=== PATIENT | male | born 1950 | race Caucasian/White ===

== ENCOUNTER 2022-08-06 09:58 | Emergency (ER) | payer MEDICARE, OTHER ==
[2022-08-06 10:02] VITALS: RESP 20; TEMP 98.5
[2022-08-06] MEDS ORDERED: KETOROLAC 15 MG/ML 1 ML VIAL IVP STA (10:21)
--- NOTE | 2022-08-06 10:23 | ED ---
General Adult HPI - General Chief complaint: Chest Pain Stated complaint: chest pain, sob Source: patient, RN notes reviewed, old records reviewed Mode of arrival: ambulatory Limitations: no limitations - History of Present Illness Initial comments: This is a 72-year-old male who presents emergency Department complaining of a 10 day history of pleuritic central and right-sided chest pain. Patient states he has a history of lung cancer. Patient states he had a lobectomy back in 2016. Patient states she's had radiation since then. Patient states the cancer was always on the right side. Patient states this chest pain radiates down his right arm. Patient states he also is very hypoxic when he just get gets up and moves around a little particular going upstairs his oxygenation go down into the 80s. Patient denies any diaphoretic episodes. Patient denies any syncopal or near syncopal episodes. Patient denies any abdominal pain patient denies nausea vomiting diarrhea. Patient denies any recent fever chills or cough. No swelling to the legs or calf tenderness. - Related Data Home Medications Medication Instructions Recorded Confirmed Calcium Carbonate [Calcium] 1,200 mg PO BID 08/06/22 08/06/22 Cholecalciferol [Vitamin D3 (25 50 mcg PO DAILY 08/06/22 08/06/22 Mcg = 1000 Iu)] Cyanocobalamin (Vitamin B-12) 1,000 mcg PO DAILY 08/06/22 08/06/22 [Vitamin B-12] Doxycycline [Vibramycin] 100 mg PO BID 08/06/22 08/06/22 Folic Acid 0.8 mg PO DAILY 08/06/22 08/06/22 Magnesium Oxide [Arenas] 500 mg PO DAILY 08/06/22 08/06/22 Multivit-Min/FA/Lycopen/Lutein 1 tab PO DAILY 08/06/22 08/06/22 [Centrum Silver Men Tablet] Naproxen [Naprosyn] 375 mg PO BID 08/06/22 08/06/22 Sertraline [Zoloft] 100 mg PO DAILY 08/06/22 08/06/22 Simvastatin [Zocor] 20 mg PO HS 08/06/22 08/06/22 Ubidecarenone [Coenzyme Q10] 200 mg PO DAILY 08/06/22 08/06/22 amLODIPine [Norvasc] 10 mg PO HS 08/06/22 08/06/22 Previous Rx's Medication Instructions Recorded Ketorolac [Toradol] 10 mg PO Q6HR #15 tab 08/06/22 Allergies Allergy/AdvReac Type Severity Reaction Status Date / Time cephalexin [From Keflex] Allergy Rash/Hives Verified 08/06/22 11:44 Review of Systems ROS Statement: Those systems with pertinent positive or pertinent negative responses have been documented in the HPI. ROS Other: All systems not noted in ROS Statement are negative. Past Medical History Past Medical History: Hypertension, Rheumatoid Arthritis (RA) Additional Past Medical History / Comment(s): Lung CA. History of Any Multi-Drug Resistant Organisms: None Reported Past Surgical History: Orthopedic Surgery Additional Past Surgical History / Comment(s): Lung, Back Past Psychological History: No Psychological Hx Reported Smoking Status: Never smoker Past Alcohol Use History: None Reported Past Drug Use History: None Reported General Exam - General Exam Comments Initial Comments: GENERAL: Patient is well-developed and well-nourished. Patient is nontoxic and well- hydrated and is in mild distress. ENT: Neck is soft and supple. No significant lymphadenopathy is noted. Oropharynx is clear. Moist mucous membranes. Neck has full range of motion without eliciting any pain. EYES: The sclera were anicteric and conjunctiva were pink and moist. Extraocular movements were intact and pupils were equal round and reactive to light. Eyelids were unremarkable. PULMONARY: Unlabored respirations. Good breath sounds bilaterally. No audible rales rhonchi or wheezing was noted. CARDIOVASCULAR: There is a regular rate and rhythm without any murmurs gallops or rubs. Patient does have some tenderness when I palpate the right upper chest. Patient also has quite a bit of pain taking a deep breath or trying to sit up in bed. ABDOMEN: Soft and nontender with normal bowel sounds. SKIN: Skin is clear with no lesions or rashes and otherwise unremarkable. NEUROLOGIC: Patient is alert and oriented x3. Cranial nerves II through XII are grossly intact. Motor and sensory are also intact. Normal speech, volume and content. Symmetrical smile. MUSCULOSKELETAL: Normal extremities with adequate strength and full range of motion. LYMPHATICS: No significant lymphadenopathy is noted PSYCHIATRIC: Normal psychiatric evaluation. Limitations: no limitations Course Vital Signs 08/06/22 08/06/22 10:00 10:06 Temperature 98.5 F Pulse Rate 87 Pulse Rate [ 90 Vp Ancillary ] Respiratory 20 Rate Blood Pressure 149/78 O2 Sat by Pulse 98 Oximetry Medical Decision Making - Medical Decision Making EKG shows a sinus rhythm at 67 bpm ME interval is 180 QRS is 70 QT interval 362 QTC is 378. Patient's EKG shows no ST segment elevation or depression. CT showed no obvious pulmonary embolism. There was an area in the right upper lobe that could either be scar tissue versus a new mass. Patient has no previous scans or x-rays here to compare with. Patient will be given a dentist to go home to follow-up with his oncologist. Patient also added in this visit that this all started when he was went to arising his trailer and he was reaching up to do something he started having pain in the right upper chest and into his arm. Patient states it's hurt ever signs. - Lab Data Result diagrams: 08/06/22 10:26 08/06/22 10: Lab Results 08/06/22 08/06/22 08/06/22 Range/Units 10: 10: 10: WBC 7.2 (3.8-10.6) k/uL RBC 4.36 (4.30-5.90) m/uL Hgb 13.9 (13.0-17.5) gm/dL Hct 41.2 (39.0-53.0) % MCV 94.5 (80.0-100.0) fL MCH 31.9 (25.0-35.0) pg MCHC 33.8 (31.0-37.0) g/dL RDW 12.3 (11.5-15.5) % Plt Count 224 (150-450) k/uL MPV 7.8 Neutrophils % 77 % Lymphocytes % 14 % Monocytes % 5 % Eosinophils % 2 % Basophils % 0 % Neutrophils # 5.5 (1.3-7.7) k/uL Lymphocytes # 1.0 (1.0-4.8) k/uL Monocytes # 0.4 (0-1.0) k/uL Eosinophils # 0.1 (0-0.7) k/uL Basophils # 0.0 (0-0.2) k/uL PT 9.9 (9.0-12.0) sec INR 0.9 (<1.2) APTT 27.3 (22.0-30.0) sec D-Dimer 0.72 H (<0.60) mg/L FEU Sodium 140 (137-145) mmol/L Potassium 4.2 (3.5-5.1) mmol/L Chloride 101 (98-107) mmol/L Carbon Dioxide 27 (22-30) mmol/L Anion Gap 12 mmol/L BUN 16 (9-20) mg/dL Creatinine 0.97 (0.66-1.25) mg/dL Est GFR (CKD-EPI)AfAm 90 (>60 ml/min/1.73 sqM) Est GFR (CKD-EPI)NonAf 78 (>60 ml/min/1.73 sqM) Glucose 88 (74-99) mg/dL Calcium 9.3 (8.4-10.2) mg/dL Magnesium 2.1 (1.6-2.3) mg/dL Total Bilirubin 0.6 (0.2-1.3) mg/dL AST 21 (17-59) U/L ALT 21 (4-49) U/L Alkaline Phosphatase 92 (38-126) U/L Troponin I (0.000-0.034) ng/mL Total Protein 7.4 (6.3-8.2) g/dL Albumin 4.6 (3.5-5.0) g/dL 08/06/22 Range/Units 10:26 WBC (3.8-10.6) k/uL RBC (4.30-5.90) m/uL Hgb (13.0-17.5) gm/dL Hct (39.0-53.0) % MCV (80.0-100.0) fL MCH (25.0-35.0) pg MCHC (31.0-37.0) g/dL RDW (11.5-15.5) % Plt Count (150-450) k/uL MPV Neutrophils % % Lymphocytes % % Monocytes % % Eosinophils % % Basophils % % Neutrophils # (1.3-7.7) k/uL Lymphocytes # (1.0-4.8) k/uL Monocytes # (0-1.0) k/uL Eosinophils # (0-0.7) k/uL Basophils # (0-0.2) k/uL PT (9.0-12.0) sec INR (<1.2) APTT (22.0-30.0) sec D-Dimer (<0.60) mg/L FEU Sodium (137-145) mmol/L Potassium (3.5-5.1) mmol/L Chloride (98-107) mmol/L Carbon Dioxide (22-30) mmol/L Anion Gap mmol/L BUN (9-20) mg/dL Creatinine (0.66-1.25) mg/dL Est GFR (CKD-EPI)AfAm (>60 ml/min/1.73 sqM) Est GFR (CKD-EPI)NonAf (>60 ml/min/1.73 sqM) Glucose (74-99) mg/dL Calcium (8.4-10.2) mg/dL Magnesium (1.6-2.3) mg/dL Total Bilirubin (0.2-1.3) mg/dL AST (17-59) U/L ALT (4-49) U/L Alkaline Phosphatase (38-126) U/L Troponin I <0.012 (0.000-0.034) ng/mL Total Protein (6.3-8.2) g/dL Albumin (3.5-5.0) g/dL Disposition Clinical Impression: Musculoskeletal chest pain Disposition: HOME SELF-CARE Condition: Good Instructions (If sedation given, give patient instructions): Chest Pain (ED) Prescriptions: Ketorolac [Toradol] 10 mg PO Q6HR #15 tab Is patient prescribed a controlled substance at d/c from ED?: No Referrals: Nonstaff,Physician [Primary Care Provider] - 1-2 days Time of Disposition: 12:13
[2022-08-06 10:36] LABS: Basophils % (A) 0 %; Eosinophils # (A) 0.1 k/uL (0-0.7); Eosinophils % (A) 2 %; HCT 41.2 % (39.0-53.0); HGB 13.9 gm/dL (13.0-17.5); Lymphocytes % (A) 14 %; MCH 31.9 pg (25.0-35.0); MCHC 33.8 g/dL (31.0-37.0); MCV 94.5 fL (80.0-100.0); Mean Platelet Volume 7.8; Monocytes # (A) 0.4 k/uL (0-1.0); Monocytes % (A) 5 %; Neutrophils # (A) 5.5 k/uL (1.3-7.7); Neutrophils % (A) 77 %; Platelet Count 224 k/uL (150-450); RBC 4.36 m/uL (4.30-5.90); RDW 12.3 % (11.5-15.5); WBC 7.2 k/uL (3.8-10.6)
[2022-08-06 10:53] LABS: Albumin 4.6 g/dL (3.5-5.0); Calcium 9.3 mg/dL (8.4-10.2); Magnesium 2.1 mg/dL (1.6-2.3); Potassium 4.2 mmol/L (3.5-5.1); Total Bilirubin 0.6 mg/dL (0.2-1.3); Total Protein 7.4 g/dL (6.3-8.2)
[2022-08-06 10:56] LABS: INR 0.9 (<1.2); Partial Thromboplastin Time 27.3 sec (22.0-30.0); Prothrombin Time 9.9 sec (9.0-12.0)
--- NOTE | 2022-08-06 11:41 | CT ---
EXAMINATION TYPE: CT chest angio for PE DATE OF EXAM: 08/06/2022 COMPARISON: None HISTORY: Pleuritic chest pain, shortness of breath, hypoxia CONTRAST: CT chest with contrast and 3D reconstruction with MIP imaging is performed with IV Contrast, patient injected with 100 mL of Isovue 370. Contrast-enhanced CT of the chest was performed through the course of the pulmonary arteries with gaston g and mediastinal window settings submitted. 3D reconstruction with MIP imaging was also performed. PULMONARY ARTERIES: There are a few smaller filling defects within left upper lobe pulmonary arterial second order branches (axial images 38 and 35). Small pulmonary embolism is difficult to exclude. Th ere is no evidence for large saddle embolism. LUNGS: Right upper lobe pleural-based mass seen best on image 45 and axial data set and 70 coronal da ta set measuring 3 x 2.4 cm. Neoplasm is not excluded. Recommend PET/CT for further evaluation. No ad ditional nodules or masses seen. Left apical parenchymal scarring. Peripheral emphysematous changes n oted bilaterally. MEDIASTINUM: Thoracic aorta is of normal caliber,however, evaluation is limited given timing of the contrast bolus. If there is concern for thoracic aortic pathology consider [place]. Correlate clinicall y . The heart is not enlarged. No evidence for mediastinal mass. No mediastinal lymph nodes greater than 1cm. HILAR STRUCTURES: No evidence for mass. No hilar lymph nodes greater than 1 cm. UPPER ABDOMEN: No significant abnormality is seen. IMPRESSION: 1. I cannot exclude small left upper lobe pulmonary embolism. 2. Pleural-based mass right upper lobe. Neoplasm is not excluded.
[2022-08-06] MEDS ORDERED: HYDROmorphone 0.5 MG/0.5 ML SYRINGE IVP STA (12:20)
[2022-08-06] MEDS ORDERED: ACET/COD 300 MG/30 MG STARTER PACK 6 TAB BTL PO STA (12:20)
[2022-08-06 12:52] VITALS: BP 137/76; PULSE 73
== END 2022-08-06 12:52 | disposition home or self-care (01) ==
LOC: EC 09:58
DX: R07.89 Other chest pain (principal); I10 Essential (primary) hypertension; M06.9 Rheumatoid arthritis, unspecified; Z79.899 Other long term (current) drug therapy; Z88.1 Allergy status to other antibiotic agents
CPT/HCPCS: 36415; 93005; 85379; 80053; 83735; 84484; 85025; 85610; 85730; 71275; 99285; 96374; 96375; J1885; J1170; Q9967

== ENCOUNTER → 2023-02-27 | Outpatient (CLI) | payer MEDICARE, OTHER ==
[2023-02-27 08:20] VITALS: BP 115/70; PULSE 71; RESP 18; TEMP 97.9
--- NOTE | 2023-02-27 08:57 | XR ---
EXAMINATION TYPE: XR lumbar spine 2 or 3V DATE OF EXAM: 02/27/2023 8:46 AM INDICATION: Patient age:Male; 72 years old; Reason for study: M51.36 Degeneration of lumbar disc; PHH. COMPARISON: None TECHNIQUE: Frontal and lateral views of the spine. FINDINGS: Fixation hardware extending extending from what is thought to be L3-L5. Hardware appears in tact. Discectomy changes at L3-L4 and L4-L5. Suspected transitional vertebrae at S1. There is scatter ed disc space narrowing most pronounced at L1-L2 with disc space narrowing. No evidence of fracture. There is facet joint arthropathy. The spinous processes are in pseudoarticulation. Atherosclerosis of the arterial vasculature. IMPRESSION: 1. Postsurgical changes with hardware intact, No acute fracture. 2. Moderate multilevel disc degeneration. 3. Evidence for Baastrup's disease.
--- NOTE | 2023-02-27 15:00 | P.PAINPG ---
PQRS Measure Charge Sheet Comment: HISTORY OF PRESENT ILLNESS: 72 yr old male as a referral from [facility] presents today w severe and chronic LBP secondary to spondylolisthesis, DDD and facet arthropathy without myelopathy for evaluation. Pt states pain level is provoked at 6/10 in intensity, constant, localized in the lower lumbar spine, tight, cramping in character w shooting pain towards the BLEs. Pain is provoked by sitting for periods of 30 min or more. Pain is alleviated by PT integrated w massage therapy 5 yrs ago which was ineffective, heat, medications (Flexeril, Neurontin), standing, repositioning and rest. PMH: HTN, Hyperlipidemia, COPD, PVD, RA PSH: Lumbar Hardware ([address] Mello), L Total Shoulder, R Shoulder Arthroscopy, Lung CA SH: Hx of tobacco use, quit 30 yrs ago. No ETOH abuse, No illicit drug use. FH: Non contributory All: See list Meds: See list REVIEW OF ORGAN SYSTEMS: CONSTITUTIONAL: No fevers or chills. No recent weight loss. NEUROLOGICAL: + numbness and tingling along the distal extremities. No seizure disorders or headaches. MUSCULOSKELETAL: + pain PSYCHIATRIC: Denies current depression or suicidal thoughts. Physical Examinations : Constitutional : Cooperative , not in acute distress . Neurologic : Cranial nerve II to XII intact. No focal neurological deficits. Psychiatric : alert & oriented x 3. Matching mood & appropriate affect. Judgment & insight intact. Musculoskeletal : Cervical Spine Motor strength in the deltoid and biceps: Normal right side. Normal Left side Motor strength biceps and the wrist extensors: Normal right side . Normal left side Motor strength in the triceps muscle: Normal right side. Normal left side Deep tendon reflexes: Normal at the biceps. Normal at Brachioradialis. Normal at triceps Vertebral body tenderness to deep palpation over Cervical facet loading test: positive bilaterally Spurling test: positive bilaterally Neck distraction test: positive bilaterally Denton sign: positive bilaterally Lumbar spine +Well healed vertical incisional scar over L2-L5 Motor strength lower extremities ,thigh and legs 5/5 Right side , 5/5 Left side Deep tendon reflexes : Normal Knee Jerk. Normal Ankle Jerk Vertebral body tenderness over L3, L4, L5 Lumbar facet Loading Test: positive Right / positive Left Range of motion of the lumbar spine Flexion 30 degrees, extension 10 degrees Straight Leg Raise test: Left/ Right positive at degree Evy test: positive right / positive left. Severe tenderness over the Sacroiliac joint on the Right / Left sides Gaenslen test: positive bilaterally Seated flexion test: positive bilaterally. Sacral spine : Severe tenderness over the Sacroiliac joint: right side / left side Range of motion: Flexion of the lumbar spine <60 degrees Range of motion: Extension of the lumbar spine <20 degrees Gaenslen's Test positive Puma's Test positive Evy test: positive right side / left side Thigh Thrust Test Sacral Thrust Test Imaging: None on file Assessment/ Plan : Lumbar spondylolisthesis Recommendation of x rays of lumbar spine re: M51.36 May need additional testing if indicated. All questions answered. I have spent greater than 30 minutes on patient care today. Dr Cruz was available by phone for the evaluation of this patient. The time was used to review the medical records including relevant urine studies and Prescription history (MAPs), review of the available imaging, evaluation and examination of the patient, coordination of care with the medical staff and if applicable referring physicians, as well as creation of the medical record - Pain Location Bilateral Lower Back Non-Pharmacological Interventions: Heat, Massage, Physical Therapy, Sitting, Standing Pharmacological Interventions: PRN Medication, Scheduled Medication Home Medications: Ambulatory Orders Calcium Carbonate [Calcium] 1,200 mg PO BID 08/06/22 Cholecalciferol [Vitamin D3 (25 Mcg = 1000 Iu)] 50 mcg PO DAILY 08/06/22 Cyanocobalamin (Vitamin B-12) [Vitamin B-12] 1,000 mcg PO DAILY 08/06/22 Doxycycline [Vibramycin] 100 mg PO BID 08/06/22 Folic Acid 0.8 mg PO DAILY 08/06/22 Ketorolac [Toradol] 10 mg PO Q6HR #15 tab 08/06/22 Magnesium Oxide [Arenas] 500 mg PO DAILY 08/06/22 Multivit-Min/FA/Lycopen/Lutein [Centrum Silver Men Tablet] 1 tab PO DAILY 08/06/22 Naproxen [Naprosyn] 375 mg PO BID 08/06/22 Sertraline [Zoloft] 100 mg PO DAILY 08/06/22 Simvastatin [Zocor] 20 mg PO HS 08/06/22 Ubidecarenone [Coenzyme Q10] 200 mg PO DAILY 08/06/22 amLODIPine [Norvasc] 10 mg PO HS 08/06/22 Controlled Substance Measures - Controlled Substance Measures Is patient prescribed a controlled substance at discharge?: No
== END ==
LOC: PNWHC3 07:50
PROVIDERS: ATTEND Specialist
DX: M51.36 Other intervertebral disc degeneration, lumbar region (principal); M43.16 Spondylolisthesis, lumbar region; I10 Essential (primary) hypertension; E78.5 Hyperlipidemia, unspecified; J44.9 Chronic obstructive pulmonary disease, unspecified; I73.9 Peripheral vascular disease, unspecified; M06.9 Rheumatoid arthritis, unspecified; Z88.1 Allergy status to other antibiotic agents
CPT/HCPCS: 72100; G0463; 99211

== ENCOUNTER → 2023-03-18 | Outpatient (CLI) | payer MEDICARE, OTHER ==
--- NOTE | 2023-03-19 11:34 | MR ---
EXAMINATION TYPE: MR lumbar spine wo con DATE OF EXAM: 03/18/2023 COMPARISON: Outside MRI performed 07/24/2019 HISTORY: Low back pain, hx of surgery TECHNIQUE: T1 and T2 axial and sagittal images of the lumbar spine are submitted. FINDINGS: There is no abnormal signal seen within the visualized spinal cord or paraspinal soft tissu es. There is extensive artifact compatible with prior laminectomy with disc spacers in transpedicular screws at levels L3-L5 limiting their assessment. At T12-L1 there is a vacuum disc phenomenon compatible severe degenerative disc disease. There is hyp ertrophic change of the facets. There is posterior disc bulging. Neural foramina are mildly narrowed bilaterally. No canal stenosis. At L1-2 there is severe degenerative disc disease with posterior spondylosis. Broad-based disc osteop hyte complex with disc bulging and facet arthropathy. Lateral recess stenosis bilaterally with modera te to severe bilateral foraminal encroachment and moderate canal stenosis. There is a chronic superio r endplate compression fracture measuring approximately 10% loss of vertebral body height. At L2-3 there is moderate degenerative disc disease with broad-based disc bulging and disc osteophyte complex results in moderate to severe central stenosis. There is moderate right and mild left nate inal encroachment At L3-4 there is postsurgical change with no obvious canal stenosis or disc herniation. Moderate bila teral foraminal encroachment. At L4-5 there is postsurgical changes with a minimal anterolisthesis of L4 on L5. No obvious canal st enosis. No obvious disc herniation. Mild to moderate bilateral foraminal encroachment. At L5-S1 there is facet arthropathy but no disc herniation or canal stenosis. Neural foramina remain patent. IMPRESSION: 1. Surgical changes L3-L5 with no evidence of canal stenosis or disc herniation at these levels. 2. Severe degenerative disc disease L-1-2 with posterior disc bulging and disc osteophyte complex res ulting in lateral recess stenosis bilaterally, moderate to severe bilateral foraminal encroachment, a nd moderate canal stenosis. 3. Posterior disc osteophyte complex results in moderate to severe central stenosis L2-3 with bilater al foraminal encroachment greater on the right.
== END | disposition home or self-care (01) ==
LOC: RADMRIMAIN 09:07
PROVIDERS: ATTEND Specialist
DX: M51.36 Other intervertebral disc degeneration, lumbar region (principal); M25.78 Osteophyte, vertebrae; M48.061 Spinal stenosis, lumbar region without neurogenic claudication
CPT/HCPCS: 72148

== ENCOUNTER → 2023-03-20 | Outpatient (CLI) | payer MEDICARE, OTHER ==
[2023-03-20 08:29] VITALS: BP 150/78; PULSE 73; RESP 18
--- NOTE | 2023-03-20 14:39 | P.PAINPG ---
PQRS Measure Charge Sheet Comment: A 72 yr old male with a history of severe and chronic LBP x 5 yrs secondary to post laminectomy syndrome presents today for imaging results. Pain level is provoked at 6 /10 in intensity, constant, localized in the lumbar spine, sore in character w shooting towards the LLE. Pain is provoked by walking/ sitting/ laying for periods of 15m or more. Pain is alleviated with PT integrated w massage therapy 5 yrs ago which was ineffective, heat, medications, hot shower, reclining, sitting and rest. Patient is currently on Neurontin, Flexeril Patient denies any side effects of the medication(s), denies excessive drowsiness or sleepiness, denies suicidal ideation and reports that the current pain medication is helping to control the pain and improve activities of daily living. Patient denies any motor or sensory deficits. Patient denies any fever or night sweats, denies any change in the bowel movements or urination. Physical Examination: -Constitutional: Cooperative. Not in acute distress . - Neurologic: Cranial nerve II to XII intact. No focal neurological deficits. - Psychatric: Alert & oriented x 3. Matching mood & appropriate affect. Judgment and insight intact. - Musculoskeletal: Cervical spine: Muscle bulk/ tone/ strength in the bilateral upper extremities normal Vertebral body tenderness to palpation over Spurling test positive Distraction test positive Facet loading test positive TTP Thoracic spine Muscle bulk / tone/ strength in the bilateral paraspinal muscles normal Vertebral body tender to palpation over Facet loading test positive TTP Lumbar spine: Motor bulk/ tone/ strength lower extremities , thigh and legs : 5/5 Deep tendon reflexes : Normal Knee Jerk. Normal Ankle Jerk . Vertebral body tenderness to palpation over L4 Torrez Test positive Lumbar Facet Loading Test positive Straight Leg Raise: positive at 30 degrees right side/ left side Gaenslen's Test positive Sacral spine : Severe tenderness over the Sacroiliac joint: right side / left side Range of motion: Flexion of the lumbar spine <60 degrees Range of motion: Extension of the lumbar spine <20 degrees Gaenslen's Test positive right side / left side Evy test: positive right side / left side Thigh Thrust Test positive right side / left side Sacral Thrust Test positive right side / left side Imaging: MRI noncontrast of the lumbar spine from 03/19/23 reviewed Assessment and plan: Chronic LBP secondary to post laminectomy syndrome Recommendation of L TFESI L4-L5 #1. May need a series of injections for optimal pain relief. Risks, benefits of procedure discussed and pt verbalized understanding. Admits to anticoagulant use or medical history of diabetes. Protocol for discontinuation/ continuation of medications esequiel procedure discussed. Minimal anesthesia provided, if clinically indicated, consisting of Versed and Fentanyl. All questions answered. I have spent less than 30 minutes on patient care today. Dr Cruz was available by phone for the evaluation of this patient. The time was used to review the medical records including relevant urine studies and Prescription history (MAPs), review of the available imaging, evaluation and examination of the patient, coordination of care with the medical staff and if applicable referring physicians, as well as creation of the medical record PQRS Narrative: Hx Alcohol Use (MH) Yes: SELDOM Home Medications: Ambulatory Orders Calcium Carbonate [Calcium] 1,200 mg PO BID 08/06/22 Cholecalciferol [Vitamin D3 (25 Mcg = 1000 Iu)] 50 mcg PO DAILY 08/06/22 Cyanocobalamin (Vitamin B-12) [Vitamin B-12] 1,000 mcg PO DAILY 08/06/22 Doxycycline [Vibramycin] 100 mg PO BID 08/06/22 Folic Acid 0.8 mg PO DAILY 08/06/22 Ketorolac [Toradol] 10 mg PO Q6HR #15 tab 08/06/22 Magnesium Oxide [Arenas] 500 mg PO DAILY 08/06/22 Multivit-Min/FA/Lycopen/Lutein [Centrum Silver Men Tablet] 1 tab PO DAILY 08/06/22 Naproxen [Naprosyn] 375 mg PO BID 08/06/22 Sertraline [Zoloft] 100 mg PO DAILY 08/06/22 Simvastatin [Zocor] 20 mg PO HS 08/06/22 Ubidecarenone [Coenzyme Q10] 200 mg PO DAILY 08/06/22 amLODIPine [Norvasc] 10 mg PO HS 08/06/22 Controlled Substance Measures - Controlled Substance Measures Is patient prescribed a controlled substance at discharge?: No
== END ==
LOC: PNWHC3 07:18
PROVIDERS: ATTEND Specialist
DX: M96.1 Postlaminectomy syndrome, not elsewhere classified (principal); G89.29 Other chronic pain; Z88.1 Allergy status to other antibiotic agents
CPT/HCPCS: 99211

== ENCOUNTER → 2023-04-09 | Day surgery (SDC) | payer MEDICARE, OTHER ==
[2023-04-05 11:27] VITALS: BMI 27.8
[~2023-04-09] MED LIST: IOPAMIDOL M200 10 ML VIAL ONE; LACTATED RINGERS 1,000 ML IV SCH; methylPREDNISolone ACETATE 80 MG/ML 1 ML VIAL ONE
[2023-04-09 07:40] VITALS: RESP 16
--- NOTE | 2023-04-09 08:13 | P.PCN ---
Date of Procedure: 04/09/23 Procedure(s) Performed: PREOPERATIVE DIAGNOSIS: 1-Lumbar radiculopathy . 2-lumbar postlaminectomy pain syndrome POSTOPERATIVE DIAGNOSIS: 1-lumbar radiculopathy. 2-lumbar postlaminectomy pain syndrome PROCEDURE 1. Transforaminal epidural steroid injection under fluoroscopic guidance at left L4-5 level. (Fluoroscopy images stored on file in the radiology Department ) 2. Lumbar epidurogram . ANESTHESIA: Local with 1% lidocaine 3 ml. EBL: Minimal PROCEDURE INDICATION: The patient with low back pain and radiculopathy symptoms unresponsive to conservative treatment. PROCEDURE DESCRIPTION / TECHNIQUE: The patient was seen and identified in the preoperative area. Risks, benefits, complications, and alternatives were discussed with the patient. The patient agreed to proceed with the procedure and signed the consent. IV was started, and vital signs were stable. Patient was taken to the OR and time out was completed. The patient was placed in the prone position on procedure table and a pillow was placed under the abdomen to reduce lumbar lordosis. The lumbosacral area was prepped and draped in the usual sterile fashion. Critical pause was taken. Vital signs were closely monitored during the procedure. Using oblique fluoroscopy, the chin of the ``David dog at left L4-5 level was identified, and the skin and deeper tissues just below was localized with 1% lidocaine. Subsequently, a 22-gauge 3.5-inch spinal needle was advanced under a tunneled view fluoroscopic guidance just underneath the chin of the ``David dog at the left L4-5 Under lateral fluoroscopy, the needle was then advanced to the posterior border of the interforaminal space. After negative aspiration of CSF and blood and with no paresthesias, 1 mL Isovue 200 contrast dye was injected excellent epidurogram and outlining of the nerve root Subsequently, 3 mL of block solution containing 60 mg Depo-Medrol and 2 mL of 0.9% normal saline PF was injected. Needle was removed . At the end of the procedure, skin was cleansed, and bandages were applied. COMPLICATIONS:none DISPOSITION / PLANS: The patient was placed in a supine position and transferred to the recovery area in a stable condition for observation. There was no evidence of lower extremity motor or sensory deficit after the procedure. Patient was discharged from the recovery room after meeting discharge criteria. Home discharge instructions were given to the patient by the staff. The patient was reexamined prior to discharge.
[2023-04-09 08:18] VITALS: PULSE 68
--- NOTE | 2023-04-09 08:33 | FL ---
EXAMINATION TYPE: FL guided pain mgmt statistic DATE OF EXAM: 04/09/2023 CLINICAL HISTORY: Low back pain. TECHNIQUE: Fluoroscopy. COMPARISON: None. FINDINGS: Fluoroscopic guidance was provided during pain relief procedure performed by Dr. Cruz . A total of 3.9 seconds of fluoroscopic time was utilized during the procedure and two spot images are acquired. Images acquired shows needle localization at L4 level with surgical change through the mid to lower lumbar spine partially imaged. IMPRESSION: As Above.
[2023-04-09 08:50] VITALS: BP 131/75
== END ==
LOC: ORPAIN 07:22
PROVIDERS: ATTEND Specialist
DX: M54.16 Radiculopathy, lumbar region (principal); M96.1 Postlaminectomy syndrome, not elsewhere classified; Z79.899 Other long term (current) drug therapy
CPT/HCPCS: 64483; J1040; Q9966

== ENCOUNTER → 2023-05-02 | Outpatient (CLI) | payer MEDICARE, OTHER ==
[2023-05-02 08:01] VITALS: BP 123/75; PULSE 61; RESP 16; TEMP 98.2
--- NOTE | 2023-05-02 14:01 | P.PAINPG ---
PQRS Measure Charge Sheet Comment: A 72 yr old male with a history of severe and chronic LBP x 5 yrs secondary to post laminectomy syndrome presents today for evaluation s/p L TFESI L4-L5 #1. Pt states he experienced 0% pain relief x 3 wks s/p procedure. Pain level is provoked at 6 /10 in intensity, constant, localized in the lumbar spine, sore in character w shooting towards the LLE. Pain is provoked by standing from a sitting position. Pain is alleviated with PT integrated w massage therapy 5 yrs ago which was ineffective, heat, medications, hot shower, reclining, sitting and rest. Oswestry axial pain score of 9. Interventional procedures include L TFESI L4-L5 x1 Patient is currently on Neurontin, Flexeril Patient denies any side effects of the medication(s), denies excessive drowsiness or sleepiness, denies suicidal ideation and reports that the current pain medication is helping to control the pain and improve activities of daily living. Patient denies any motor or sensory deficits. Patient denies any fever or night sweats, denies any change in the bowel movements or urination. Physical Examination: -Constitutional: Cooperative. Not in acute distress . - Neurologic: Cranial nerve II to XII intact. No focal neurological deficits. - Psychatric: Alert & oriented x 3. Matching mood & appropriate affect. Judgment and insight intact. - Musculoskeletal: Cervical spine: Muscle bulk/ tone/ strength in the bilateral upper extremities normal Vertebral body tenderness to palpation over Spurling test positive Distraction test positive Facet loading test positive TTP Thoracic spine Muscle bulk / tone/ strength in the bilateral paraspinal muscles normal Vertebral body tender to palpation over Facet loading test positive TTP Lumbar spine: Motor bulk/ tone/ strength lower extremities , thigh and legs : 5/5 Deep tendon reflexes : Normal Knee Jerk. Normal Ankle Jerk . Vertebral body tenderness to palpation over L4 Torrez Test positive Lumbar Facet Loading Test positive Straight Leg Raise: positive at 30 degrees right side/ left side Gaenslen's Test positive Sacral spine : Severe tenderness over the Sacroiliac joint: right side / left side Range of motion: Flexion of the lumbar spine <60 degrees Range of motion: Extension of the lumbar spine <20 degrees Gaenslen's Test positive right side / left side Evy test: positive right side / left side Thigh Thrust Test positive right side / left side Sacral Thrust Test positive right side / left side Imaging: MRI noncontrast of the lumbar spine from 03/19/23 reviewed Assessment and plan: Chronic LBP secondary to post laminectomy syndrome Recommendation of L TFESI L4-L5 #2. May need a series of injections for optimal pain relief. Risks, benefits of procedure discussed and pt verbalized understanding. Admits to anticoagulant use or medical history of diabetes. Protocol for discontinuation/ continuation of medications esequiel procedure discussed. Minimal anesthesia provided, if clinically indicated, consisting of Versed and Fentanyl. All questions answered. I have spent less than 30 minutes on patient care today. Dr Cruz was available by phone for the evaluation of this patient. The time was used to review the medical records including relevant urine studies and Prescription history (MAPs), review of the available imaging, evaluation and examination of the patient, coordination of care with the medical staff and if applicable referring physicians, as well as creation of the medical record PQRS Narrative: Hx Alcohol Use (MH) Yes: SELDOM Home Medications: Ambulatory Orders Calcium Carbonate [Calcium] 1,200 mg PO BID 08/06/22 Cholecalciferol [Vitamin D3 (25 Mcg = 1000 Iu)] 50 mcg PO DAILY 08/06/22 Cyanocobalamin (Vitamin B-12) [Vitamin B-12] 1,000 mcg PO DAILY 08/06/22 Multivit-Min/FA/Lycopen/Lutein [Centrum Silver Men Tablet] 1 tab PO DAILY 08/06/22 Simvastatin [Zocor] 20 mg PO HS 08/06/22 Ubidecarenone [Coenzyme Q10] 200 mg PO DAILY 08/06/22 amLODIPine [Norvasc] 10 mg PO HS 08/06/22 Cyclobenzaprine [Flexeril] 10 mg PO TID PRN 04/05/23 Fluticasone/Umeclidin/Vilanter [Trelegy Ellipta 100-62.5-25] 1 inhalation INHALATION BID 04/05/23 Gabapentin (Unknown Dose) 1 dose PO TID 04/05/23 Magnesium Oxide [Magnesium] 500 mg PO DAILY 04/05/23 Mometasone/Formoterol [Dulera 100 Mcg-5 Mcg Inhaler] 1 puff INHALATION DIRECTED PRN 04/05/23 Omeprazole Magnesium [PriLOSEC OTC] 20 mg PO DAILY 04/05/23 Controlled Substance Measures - Controlled Substance Measures Is patient prescribed a controlled substance at discharge?: No
== END ==
LOC: PNWHC3 07:21
PROVIDERS: ATTEND Specialist
DX: M96.1 Postlaminectomy syndrome, not elsewhere classified (principal); G89.29 Other chronic pain; Z88.8 Allergy status to other drugs, medicaments and biological substances
CPT/HCPCS: 99211

== ENCOUNTER → 2023-05-23 | Day surgery (SDC) | payer MEDICARE, OTHER ==
[~2023-05-23] MED LIST changes: +methylPREDNISolone ACETATE 40 MG/ML 1 ML VIAL ONE; -methylPREDNISolone ACETATE 80 MG/ML 1 ML VIAL ONE
[2023-05-23 07:16] VITALS: TEMP 97
--- NOTE | 2023-05-23 08:01 | P.PCN ---
Date of Procedure: 05/23/23 Procedure(s) Performed: PREOPERATIVE DIAGNOSIS: 1-Lumbar radiculopathy . 2-lumbar postlaminectomy pain syndrome. 3-failed back surgery syndrome lumbar area. POSTOPERATIVE DIAGNOSIS: 1-lumbar radiculopathy. 2-lumbar postlaminectomy pain syndrome. 3-failed back surgery syndrome lumbar area. PROCEDURE 1. Transforaminal epidural steroid injection under fluoroscopic guidance at left L4-5 level. (Fluoroscopy images stored on file in the radiology Department ) 2. Lumbar epidurogram . ANESTHESIA: Local with 1% lidocaine 3 ml. EBL: Minimal PROCEDURE INDICATION: The patient with low back pain and radiculopathy symptoms unresponsive to conservative treatment. PROCEDURE DESCRIPTION / TECHNIQUE: The patient was seen and identified in the preoperative area. Risks, benefits, complications, and alternatives were discussed with the patient. The patient agreed to proceed with the procedure and signed the consent. IV was started, and vital signs were stable. Patient was taken to the OR and time out was completed. The patient was placed in the prone position on procedure table and a pillow was placed under the abdomen to reduce lumbar lordosis. The lumbosacral area was prepped and draped in the usual sterile fashion. Critical pause was taken. Vital signs were closely monitored during the procedure. Using oblique fluoroscopy, the chin of the `MounaDavid dog at left L4-5 level was identified, and the skin and deeper tissues just below was localized with 1% lidocaine. Subsequently, a 22-gauge 3.5-inch spinal needle was advanced under a tunneled view fluoroscopic guidance just underneath the chin of the `Oreny dog at the left L4-5 Under lateral fluoroscopy, the needle was then advanced to the posterior border of the interforaminal space. After negative aspiration of CSF and blood and with no paresthesias, 1 mL Isovue 200 contrast dye was injected excellent epidurogram and outlining of the nerve root Subsequently, 3 mL of block solution containing 40 mg Depo-Medrol and 2 mL of 0.9% normal saline PF was injected. Needle was removed . At the end of the procedure, skin was cleansed, and bandages were applied. COMPLICATIONS:none DISPOSITION / PLANS: The patient was placed in a supine position and transferred to the recovery area in a stable condition for observation. There was no evidence of lower extremity motor or sensory deficit after the procedure. Patient was discharged from the recovery room after meeting discharge criteria. Home discharge instructions were given to the patient by the staff. The patient was reexamined prior to discharge.
[2023-05-23 08:12] VITALS: BP 125/77; PULSE 56; RESP 16
--- NOTE | 2023-05-23 08:16 | FL ---
Intraoperative/procedural fluoroscopic services were provided for lumbar transforaminal epidural inje ction. Total fluoroscopy time is 3.9 seconds with a total of 1 submitted image to PACS. Total DAP 0.0 1286 mGym2. Please see the operative note for further details.
== END ==
LOC: ORPAIN 06:44
PROVIDERS: ATTEND Specialist
DX: M96.1 Postlaminectomy syndrome, not elsewhere classified (principal); M54.16 Radiculopathy, lumbar region
CPT/HCPCS: 64483; J1030; Q9966

== ENCOUNTER → 2023-06-12 | Outpatient (CLI) | payer MEDICARE, OTHER ==
[2023-06-12 07:59] VITALS: BP 117/75; PULSE 61; RESP 16
== END ==
LOC: PNWHC3 07:20
PROVIDERS: ATTEND Anesthesiology
DX: M54.50 Low back pain, unspecified (principal); Z88.1 Allergy status to other antibiotic agents; Z88.8 Allergy status to other drugs, medicaments and biological substances
CPT/HCPCS: 99211

== ENCOUNTER 2023-06-25 07:14 | Day surgery (SDC) | payer MEDICARE, OTHER ==
[2023-06-25 07:59] VITALS: TEMP 97.7
[2023-06-25] MEDS ORDERED: LACTATED RINGERS 1,000 ML IV SCH (08:03)
[2023-06-25] MEDS ORDERED: IOPAMIDOL M200 10 ML VIAL ONE (08:25)
[2023-06-25] MEDS ORDERED: methylPREDNISolone ACETATE 40 MG/ML 1 ML VIAL ONE (08:25)
--- NOTE | 2023-06-25 08:32 | P.PCN ---
Date of Procedure: 06/25/23 Procedure(s) Performed: PREOPERATIVE DIAGNOSIS: 1-Lumbar radiculopathy . 2-lumbar postlaminectomy pain syndrome. 3-failed back surgery syndrome lumbar area. POSTOPERATIVE DIAGNOSIS: 1-lumbar radiculopathy. 2-lumbar postlaminectomy pain syndrome. 3-failed back surgery syndrome lumbar area. PROCEDURE 1. Transforaminal epidural steroid injection under fluoroscopic guidance at left L4-5 level. (Fluoroscopy images stored on file in the radiology Department ) 2. Lumbar epidurogram . ANESTHESIA: Local with 1% lidocaine 3 ml. EBL: Minimal PROCEDURE INDICATION: The patient with low back pain and radiculopathy symptoms unresponsive to conservative treatment. PROCEDURE DESCRIPTION / TECHNIQUE: The patient was seen and identified in the preoperative area. Risks, benefits, complications, and alternatives were discussed with the patient. The patient agreed to proceed with the procedure and signed the consent. IV was started, and vital signs were stable. Patient was taken to the OR and time out was completed. The patient was placed in the prone position on procedure table and a pillow was placed under the abdomen to reduce lumbar lordosis. The lumbosacral area was prepped and draped in the usual sterile fashion. Critical pause was taken. Vital signs were closely monitored during the procedure. Using oblique fluoroscopy, the chin of the `Oreny dog at left L4-5 level was identified, and the skin and deeper tissues just below was localized with 1% lidocaine. Subsequently, a 22-gauge 3.5-inch spinal needle was advanced under a tunneled view fluoroscopic guidance just underneath the chin of the `Oreny dog at the left L4-5 Under lateral fluoroscopy, the needle was then advanced to the posterior border of the inter foraminal space. After negative aspiration of CSF and blood and with no paresthesias, 1 mL Isovue 200 contrast dye was injected excellent epidurogram and outlining of the nerve root Subsequently, 3 mL of block solution containing 40 mg Depo-Medrol and 2 mL of 0.9% normal saline PF was injected. Needle was removed . At the end of the procedure, skin was cleansed, and bandages were applied. COMPLICATIONS:none DISPOSITION / PLANS: The patient was placed in a supine position and transferred to the recovery area in a stable condition for observation. There was no evidence of lower extremity motor or sensory deficit after the procedure. Patient was discharged from the recovery room after meeting discharge criteria. Home discharge instructions were given to the patient by the staff. The patient was reexamined prior to discharge.
[2023-06-25 08:58] VITALS: BP 127/82; PULSE 57; RESP 20
--- NOTE | 2023-06-25 20:34 | FL ---
Intraoperative/procedural fluoroscopic services were provided. Total fluoroscopy time is 6.1 seconds with a total of 1 submitted images to PACS. Please see the operative/procedural note for further deta ils. DAP: 0.90414 mGym2
== END 2023-06-25 08:59 | disposition home or self-care (01) ==
LOC: ORPAIN 07:14
PROVIDERS: ATTEND Specialist
DX: M54.16 Radiculopathy, lumbar region (principal); M96.1 Postlaminectomy syndrome, not elsewhere classified; Z88.1 Allergy status to other antibiotic agents; Z88.8 Allergy status to other drugs, medicaments and biological substances
CPT/HCPCS: 64483; J1030; Q9966

== ENCOUNTER 2023-08-15 06:39 | Day surgery (SDC) | payer MEDICARE, OTHER ==
[~2023-08-15 06:39] MED LIST changes: -IOPAMIDOL M200 10 ML VIAL ONE; -methylPREDNISolone ACETATE 40 MG/ML 1 ML VIAL ONE
[2023-08-15 07:41] VITALS: TEMP 97.3
[2023-08-15] MEDS ORDERED: IOPAMIDOL M200 10 ML VIAL ONE (07:55)
[2023-08-15] MEDS ORDERED: methylPREDNISolone ACETATE 40 MG/ML 1 ML VIAL ONE (07:55)
--- NOTE | 2023-08-15 08:00 | P.PCN ---
Date of Procedure: 08/15/23 Procedure(s) Performed: PREOPERATIVE DIAGNOSIS: 1- Lumbar Degenerative Disc Diseases 2- failed back surgery syndrome lumbar area POSTOPERATIVE DIAGNOSIS: 1-lumbar degenerative disc disease. 2-failed back surgery syndrome lumbar area PROCEDURE 1. Lumbar epidural steroid injection under fluoroscopic guidance at the L4-5 level. (Fluoroscopy imaging was available in radiology department) 2. Lumbar epidurogram. ANESTHESIA: Lidocaine 1% 3 and then only. EBL: Minimal PROCEDURE INDICATION: The patient with low back pain and radiculitis symptoms unresponsive to conservative treatment. Fluoroscopy was used to optimize visualization of the needle placement and to maximize safety. PROCEDURE DESCRIPTION / TECHNIQUE: The patient was seen and identified in the preoperative area. Risks, benefits, complications including but not limited to infections ,bleeding ,allergic reaction to the medications ,nerve damage and not complete pain releife , and alternatives were discussed with the patient. The patient agreed to proceed with the procedure and signed the consent, and vital signs were stable. Patient was taken to the OR and time out was completed. The patient was placed in the prone position on procedure table and a pillow was placed under the abdomen to reduce lumbar lordosis. The lumbosacral area was prepped and draped in the usual sterile fashion.ere closely monitored during the procedure. Vital signs was monitered during the entire procedure. Using anterior-posterior fluoroscopy, the L4-5 interlaminar space was identified and the skin over this site was marked and then infiltrated with 1% lidocaine subcutaneously. Subsequently, a 20-gauge Tuohy epidural needle was inserted and advanced toward the epidural space using the ``Loss of resistance technique and guided by AP and lateral fluoroscopy. The correct needle position in the epidural space was verified with the injection of 2 mL of the water soluble contrast dye Isovue 200 contrast and observing an excellent epidurogram with the epidural spread of the dye, after negative aspiration for blood and CSF and in the absence of paresthesias. Again after negative aspiration, a 6 ml mixture containing 40 mg of Depo-medrol ( Preservetive Free ), and 2 ml of preservative free Normal Saline, and 2 ml of preservative free lidocaine 1% solution was injected and a washout of epidurogram was seen. Needle was withdrawn intact, skin was cleansed, and bandages were applied. COMPLICATIONS: None DISPOSITION / PLANS: The patient was placed in a supine position and transferred to the recovery area in a stable condition for observation. There was no evidence of lower extremity motor or sensory deficit after the procedure. Patient was discharged from the recovery room after meeting discharge criteria. Home discharge instructions were given to the patient by the staff. The patient was reexamined prior to discharge. The patient will schedule a follow up in the clinic in 2-4 weeks.
[2023-08-15 08:27] VITALS: BP 135/73; PULSE 56; RESP 18
--- NOTE | 2023-08-15 08:31 | FL ---
Intraoperative/procedural fluoroscopic services were provided. Total fluoroscopy time is 1.6 seconds with a total of 2 submitted images to PACS. Please see the operative/procedural note for further deta ils. DAP: [id number] mGym2
== END 2023-08-15 08:24 | disposition home or self-care (01) ==
LOC: ORPAIN 06:39
PROVIDERS: ATTEND Specialist
DX: M51.16 Intervertebral disc disorders with radiculopathy, lumbar region (principal); Z88.1 Allergy status to other antibiotic agents
CPT/HCPCS: 62323; J1030; Q9966

== ENCOUNTER → 2023-10-30 | Outpatient (CLI) | payer MEDICARE, OTHER ==
[2023-10-30 09:13] VITALS: BP 128/77; PULSE 68; RESP 16; TEMP 97.3
--- NOTE | 2023-10-30 14:32 | P.PAINPG ---
PQRS Measure Charge Sheet Comment: A 72 yr old male with a history of severe and chronic LBP x 5 yrs secondary to post laminectomy syndrome presents today for evaluation s/p JOHN L4-L5 #3. Pt states he experienced 70% pain relief x 6 wks s/p procedure. Pain level is provoked at 6 /10 in intensity, constant, localized in the lumbar spine, pred ominantly axial, sore in character w occasional shooting towards the back of L leg. Pain is provoked by standing from a sitting position. Pain is alleviated with PT integrated w massage therapy 5 yrs ago which was ineffective, heat, medications, hot shower, reclining, sitting and rest. Oswestry axial pain score of 9. Interventional procedures include L TFESI L4-L5 x2, JOHN L4-L5 x1 Patient is currently on Neurontin, Flexeril Patient denies any side effects of the medication(s), denies excessive drowsiness or sleepiness, denies suicidal ideation and reports that the current pain medication is helping to control the pain and improve activities of daily living. Patient denies any motor or sensory deficits. Patient denies any fever or night sweats, denies any change in the bowel movements or urination. Physical Examination: -Constitutional: Cooperative. Not in acute distress . - Neurologic: Cranial nerve II to XII intact. No focal neurological deficits. - Psychatric: Alert & oriented x 3. Matching mood & appropriate affect. Judgment and insight intact. - Musculoskeletal: Cervical spine: Muscle bulk/ tone/ strength in the bilateral upper extremities normal Vertebral body tenderness to palpation over Spurling test positive Distraction test positive Facet loading test positive TTP Thoracic spine Muscle bulk / tone/ strength in the bilateral paraspinal muscles normal Vertebral body tender to palpation over Facet loading test positive TTP Lumbar spine: Motor bulk/ tone/ strength lower extremities , thigh and legs : 5/5 Deep tendon reflexes : Normal Knee Jerk. Normal Ankle Jerk . Vertebral body tenderness to palpation over L4 Torrez Test positive Lumbar Facet Loading Test positive Straight Leg Raise: positive at 30 degrees right side< left side Gaenslen's Test positive Sacral spine : Severe tenderness over the Sacroiliac joint: right side / left side Range of motion: Flexion of the lumbar spine <60 degrees Range of motion: Extension of the lumbar spine <20 degrees Gaenslen's Test positive right side / left side Evy test: positive right side / left side Thigh Thrust Test positive right side / left side Sacral Thrust Test positive right side / left side Imaging: MRI noncontrast of the lumbar spine from 03/19/23 reviewed Assessment and plan: Chronic LBP secondary to post laminectomy syndrome Has had 4 ESIs within a 12 mo period. Disinterested in TENS unit for home use, additional PT or follow up w orthopedics. Will manage residual pain and may RTC on an as needed basis. All questions answered. I have spent less than 30 minutes on patient care today. Dr Cruz was available by phone for the evaluation of this patient. The time was used to review the medical records including relevant urine studies and Prescription history (MAPs), review of the available imaging, evaluation and examination of the patient, coordination of care with the medical staff and if applicable referring physicians, as well as creation of the medical record PQRS Narrative: Hx Alcohol Use (MH) Yes: SELDOM Home Medications: Ambulatory Orders Calcium Carbonate [Calcium] 1,200 mg PO BID 08/06/22 Cholecalciferol [Vitamin D3 (25 Mcg = 1000 Iu)] 50 mcg PO DAILY 08/06/22 Cyanocobalamin (Vitamin B-12) [Vitamin B-12] 1,000 mcg PO DAILY 08/06/22 Mv-Min/Folic/K1/Lycopen/Lutein [Centrum Silver Men Tablet] 1 tab PO DAILY 08/06/22 Simvastatin [Zocor] 20 mg PO HS 08/06/22 Ubidecarenone [Coenzyme Q10] 200 mg PO DAILY 08/06/22 amLODIPine [Norvasc] 10 mg PO HS 08/06/22 Cyclobenzaprine [Flexeril] 10 mg PO TID PRN 04/05/23 Fluticasone/Umeclidin/Vilanter [Trelegy Ellipta 100-62.5-25] 1 inhalation INHALATION BID 04/05/23 Magnesium Oxide [Magnesium] 500 mg PO DAILY 04/05/23 Mometasone/Formoterol [Dulera 100 Mcg-5 Mcg Inhaler] 1 puff INHALATION DIRECTED PRN 04/05/23 Omeprazole Magnesium [PriLOSEC OTC] 20 mg PO DAILY 04/05/23 Controlled Substance Measures - Controlled Substance Measures Is patient prescribed a controlled substance at discharge?: No
== END ==
LOC: PNWHC3 08:35
PROVIDERS: ATTEND Specialist
DX: M96.1 Postlaminectomy syndrome, not elsewhere classified (principal); G89.29 Other chronic pain; Z88.1 Allergy status to other antibiotic agents; Z88.8 Allergy status to other drugs, medicaments and biological substances
CPT/HCPCS: 99211